=== PATIENT | male | born 1985 | race Caucasian/White ===

== ENCOUNTER 2018-02-16 11:07 | Emergency (ER) | payer OTHER ==
[2018-02-16] MEDS ORDERED: Diphtheria,Pertussis(Acell),Tetanus Vaccine 0.5 ML SDV IM ONE (11:15)
[2018-02-16] MEDS ORDERED: Lidocaine 1% 20 ML MDV INJECT ONE (11:21)
[2018-02-16] MEDS ORDERED: Lidocaine 1% 10 ML MDV ONE (11:23)
--- NOTE | 2018-02-16 11:30 | EDM.PDOC ---
ED HPI GENERAL MEDICAL PROBLEM - General Chief Complaint: Laceration Stated Complaint: RT LEG LAC Time Seen by Provider: 02/16/18 11:25 Source of Information: Reports: Patient History Limitations: Reports: No Limitations - History of Present Illness INITIAL COMMENTS - FREE TEXT/NARRATIVE: Chuckie is a 32yo male presents to ED ambulatory after suffering laceration to his right mid lower leg while at work today. This occurred just prior to arrival , he was working with some type of saw, it slipped and lacerated through his FR jeans to his mid le. He has 2 linear lacerations to his mid le. Bleeding has stopped but he and co-worker state it "bled a lot". He denies numbness/tingling distally to the wound. He is unsure of his last tetanus vaccine, "maybe when I was a teenager". He is otherwise healthy. No hx of DM. NKDA. 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 [No Known Home Meds] 11/06/15 [History] Past Medical History - Past Health History Medical/Surgical History: Denies Medical/Surgical History Social & Family History - Tobacco Use Smoking Status *Q: Current Every Day Smoker Years of Tobacco use: 16 Packs/Tins Daily: 0.5 - Caffeine Use Caffeine Use: Reports: Energy Drinks - Recreational Drug Use Recreational Drug Use: No ED ROS GENERAL - Review of Systems Review Of Systems: See Below Constitutional: Reports: No Symptoms HEENT: Reports: No Symptoms Respiratory: Reports: No Symptoms Cardiovascular: Reports: No Symptoms GI/Abdominal: Reports: No Symptoms Musculoskeletal: Reports: Other (laceration to rt lower leg, see HPI) Skin: Reports: Other (laceration to rt lower leg, see HPI) Neurological: Reports: No Symptoms ED EXAM, SKIN/RASH Exam: See Below Exam Limited By: No Limitations General Appearance: Alert, WD/WN, No Apparent Distress Eye Exam: Bilateral Eye: EOMI, PERRL Ears: Normal External Exam Nose: Normal Inspection Throat/Mouth: Normal Inspection Head: Atraumatic, Normocephalic Neck: Normal Inspection Respiratory/Chest: No Respiratory Distress, Lungs Clear Cardiovascular: Normal Peripheral Pulses, Regular Rate, Rhythm, No Edema Peripheral Pulses: 2+: Posterior Tibial (L), Posterior Tibial (R), Dorsalis Pedis (L), Dorsalis Pedis (R) (Male) Exam: Deferred Rectal (Males) Exam: Deferred Extremities: Other (Laceration to right lower leg. CMS + distally.) Neurological: Alert, Oriented, CN II-XII Intact Psychiatric: Normal Affect Skin: Other (Laceration to rt lower leg. measuring 3.4cm x 0.7cm, second laceration just below is 3cm x 0.8cm. Bleeding has stopped. Wound edges are minimally jagged. CMS intact) Location, Skin: Lower Extremity, Left Characteristics: Other (laceration, bleeding controlled/stopped) ED SKIN PROCEDURES - Laceration/Wound Repair Left Middle Medial Distal Leg Lac/Wound length In cm: 2 Appearance: Subcutaneous Distal NVT: Neuro & Vascular Intact, No Tendon Injury Anesthetic Type: Local Local Anesthesia - Lidocaine (Xylocaine): 1% Plain Local Anesthetic Volume: Other (6cc) Skin Prep: Chlorhexidine (Hibiciens) Exploration/Debridement/Repair: Wound Explored, In a Bloodless Field, Explored to Base, Minimal Debridement Closed with: Sutures Suture Size: 3-0 Suture Type: Nylon, Interrupted, Running Sterile Dressing Applied: Provider Tetanus Status Addressed: Yes Complications: No Left Middle Midline Distal Leg Lac/Wound length In cm: 3 Appearance: Subcutaneous Distal NVT: Neuro & Vascular Intact Anesthetic Type: Local Local Anesthesia - Lidocaine (Xylocaine): 1% Plain Local Anesthetic Volume: Other (6cc) Skin Prep: Chlorhexidine (Hibiciens) Exploration/Debridement/Repair: Wound Explored, In a Bloodless Field, Explored to Base, Minimal Debridement Closed with: Sutures Suture Size: 3-0 Suture Type: Nylon, Interrupted Sterile Dressing Applied: Provider Tetanus Status Addressed: Yes Complications: No Course - Vital Signs Last Recorded V/S: Last Vital Signs Temp 97.7 F 02/16/18 11:19 Pulse 95 02/16/18 11:19 Resp 20 02/16/18 11:19 BP 134/93 H 02/16/18 11:19 Pulse Ox 98 02/16/18 11:19 - Orders/Labs/Meds Orders: Active Orders 24 hr Category Date Time Status Vaccines to be Administered [RC] PER UNIT ROUTINE Care 02/16/18 11:15 Active Meds: Medications Discontinued Medications Generic Name Dose Route Start Last Admin Trade Name Lilian PRN Reason Stop Dose Admin Diphtheria/Tetanus/Acell Pertussis 0.5 ml 02/16/18 11:15 02/16/18 11:25 Adacel IM 02/16/18 11:16 0.5 ml .ONCE ONE Administration Lidocaine HCl 20 ml 02/16/18 11:21 02/16/18 11:27 Xylocaine 1% INJECT 02/16/18 11:22 Not Given ONETIME ONE Lidocaine HCl Confirm 02/16/18 11:23 02/16/18 11:26 Xylocaine 1% Administered 02/16/18 11:24 20 ml Dose Administration 10 ml .ROUTE .STK-MED ONE - Re-Assessments/Exams Free Text/Narrative Re-Assessment/Exam: 02/16/18 12:18 Patient tolerated lac repair without problems. Questions answered. See DC instructions for further details. Departure - Departure Time of Disposition: 12:10 Disposition: Home, Self-Care 01 Condition: Good Clinical Impression: Laceration - Discharge Information Instructions: Puncture Wound, [id number], Laceration Care, Adult, Easy-to- Read Referrals: PCP,None [Primary Care Provider] - Forms: ED Department Discharge Additional Instructions: Keep wound clean and dry except for showering. May wash with soap and water once daily. Keep clean and covered with antibiotic ointment and bandage if working. Suture removal in 7-10 days at [facility], can call [phone] to schedule appointment for suture removal and ER follow up for laceration. Watch for signs of infection as discussed, redness, drainage, swelling, red streaks or fever. No work restrictions at this time; follow up in 7-10 days. You received Tetanus vaccination today. Return to ER or to Primary Care Provider if questions or concerns. - My Orders Last 24 Hours: My Active Orders 02/16/18 11:15 Vaccines to be Administered [RC] PER UNIT ROUTINE - Assessment/Plan Last 24 Hours: My Active Orders 02/16/18 11:15 Vaccines to be Administered [RC] PER UNIT ROUTINE
[2018-02-16 12:23] VITALS: BP 140/74
== END 2018-02-16 12:18 | disposition home or self-care (01) ==
LOC: JD.ED 11:07
DX: S81.811A Laceration without foreign body, right lower leg, initial encounter (principal); F17.210 Nicotine dependence, cigarettes, uncomplicated; W27.0XXA Contact with workbench tool, initial encounter; Z23 Encounter for immunization
CPT/HCPCS: 12002; 90471; 90715; 99283-25